=== PATIENT | female | born 1965 | race Caucasian/White ===

== ENCOUNTER 2022-02-08 20:38 | Emergency (ER) | payer MEDICAID ==
[~2022-02-08] VITALS: Ht 157.5 cm; Wt 60.3 kg
[2022-02-08 21:00] VITALS: BP_SYST 154
--- NOTE | 2022-02-08 21:44 | NUR ---
Placed in room 08 . Placed on cardiac nurse specialist, blood pressure machine and pulse oximeter. To gown for exam. Side rails up. Report given to CHARLENE HENNING
--- NOTE | 2022-02-08 22:03 | NUR ---
Pt BIB son from home due to upper L back pain and on and off numbness to L arm and leg. Symptoms have persisted x6 months but worsened today. States she took Methocarbamol 500 mg 1 tab around 1600 with minimal relief. Arrived to ED in no acute distress. Breathing adequately on RA.
--- NOTE | 2022-02-08 22:06 | NUR ---
Son is at bedside.
--- NOTE | 2022-02-08 22:50 | NUR ---
ER at bedside examining patient.
--- NOTE | 2022-02-08 23:00 | NUR ---
PT TAKEN TO RAD FOR IMAGING.
[2022-02-08] MEDS: CYCLOBENZAPRINE HCL 10 MG TABLET (FLEXERIL) PO ONE (23:24)
[2022-02-08] MEDS: LIDOCAINE PATCH 5% 1 EA TP ONE (23:25)
[2022-02-08] MEDS: ACETAMINOPHEN 500 MG TABLET PO ONE (23:25)
[2022-02-08] MEDS ORDERED: CYCLOBENZAPRINE HCL 10 MG TABLET (FLEXERIL) ONE (23:32)
[2022-02-09] MEDS ORDERED: ACET-2634 PO (01:43)
[2022-02-09] MEDS ORDERED: LIDO700A30 TP (01:43)
--- NOTE | 2022-02-09 02:00 | NUR ---
Patient given written and verbal discharge instructions and verbalizes understanding. ER MD Aguilar discussed with patient the results and treatment provided. Patient in stable condition. ID arm band removed. Rx of Acetaminophen Xtra Strength and Lidocaine sent to pharmacy of choice. Patient educated on pain management and to follow up with PMD. Pain Scale 1/10 upon discharge. Opportunity for questions provided and answered. Medication side effect fact sheet provided.
[2022-02-09 02:20] VITALS: BP_SYST 123
== END 2022-02-09 02:00 | disposition home or self-care (01) ==
LOC: SED 20:38
DX: S29.012A Strain of muscle and tendon of back wall of thorax, initial encounter (principal); S16.1XXA Strain of muscle, fascia and tendon at neck level, initial encounter; M77.01 Medial epicondylitis, right elbow; F41.9 Anxiety disorder, unspecified; Z79.899 Other long term (current) drug therapy; X50.0XXA Overexertion from strenuous movement or load, initial encounter; Y93.89 Activity, other specified; Y92.89 Other specified places as the place of occurrence of the external cause; Y99.8 Other external cause status
CPT/HCPCS: 71045; 72040-TC; 72072-TC; 99284